=== PATIENT | male | born 1985 | race African-American/Black ===

== ENCOUNTER 2017-09-28 15:12 | Emergency (ER) | payer SELFPAY ==
[2017-09-28] MEDS ORDERED: ONDANSETRON 4 MG TAB.RAPDIS PO ONE (16:23)
[2017-09-28] MEDS ORDERED: KETOROLAC TROMETHAMINE 60 MG/2 ML SDV IM ONE (16:23)
--- NOTE | 2017-09-28 16:25 | ER Document Report ---
ED General - General Chief Complaint: Fever Stated Complaint: FEVER SYMPTOMS Time Seen by Provider: 09/28/17 16:19 Mode of Arrival: Ambulatory Information source: Patient, Relative Notes: 32-year-old male presents with complaints of generalized body aches sore throat nausea vomiting of a few hours duration. Patient notes symptoms started around 4:00 this morning. Significant other notes he was not looking well yesterday but he was denying not feeling well. At 4:00 this morning he noted that he did not feel good has generalized malaise TRAVEL OUTSIDE OF THE [place] IN LAST 30 DAYS: No - HPI Onset: This morning Onset/Duration: Sudden Quality of pain: Achy Severity: Mild Pain Level: 1 Associated symptoms: Body/muscle aches, Nausea Exacerbated by: Denies Relieved by: Denies Similar symptoms previously: No Recently seen / treated by doctor: No - Related Data Allergies/Adverse Reactions: No Known Allergies Allergy (Unverified 09/28/17 15:13) Past Medical History - Social History Smoking Status: Never Smoker Cigarette use (# per day): No Chew tobacco use (# tins/day): No Smoking Education Provided: No Frequency of alcohol use: None Drug Abuse: None Family History: Reviewed & Not Pertinent Patient has suicidal ideation: No Patient has homicidal ideation: No Renal/ Medical History: Denies: Hx Peritoneal Dialysis Review of Systems - Review of Systems Notes: REVIEW OF SYSTEMS: CONSTITUTIONAL : Denies fever, chills, or sweats. Denies recent illness. EENT: Sore throat CARDIOVASCULAR: Denies chest pain. Denies palpitations or racing or irregular heart beat. Denies ankle edema. RESPIRATORY: Denies cough, cold, or chest congestion. Denies shortness of breath, difficulty breathing, or wheezing. GASTROINTESTINAL: Denies abdominal pain or distention. Denies nausea, vomiting , or diarrhea. Denies blood in vomitus, stools, or per rectum. Denies black, tarry stools. Denies constipation. GENITOURINARY: Denies difficulty urinating, painful urination, burning, frequency, blood in urine, or discharge. MUSCULOSKELETAL: Generalized body aches SKIN: Denies rash, lesions or sores. HEMATOLOGIC : Denies easy bruising or bleeding. LYMPHATIC: Denies swollen, enlarged glands. NEUROLOGICAL: Denies confusion or altered mental status. Denies passing out or loss of consciousness. Denies dizziness or lightheadedness. Denies headache. Denies weakness or paralysis or loss of use of either side. Denies problems with gait or speech. Denies sensory loss, numbness, or tingling. Denies seizures. PSYCHIATRIC: Denies anxiety or stress. Denies depression, suicidal ideation, or homicidal ideation. ALL OTHER SYSTEMS REVIEWED AND NEGATIVE. Dictation was performed using [employer] voice recognition software PHYSICAL EXAMINATION: GENERAL: Well-appearing, well-nourished and in no acute distress. Patient does feel ill but does not appear significantly ill HEAD: Atraumatic, normocephalic. EYES: Pupils equal round and reactive to light, extraocular movements intact, sclera anicteric, conjunctiva are normal. ENT: Nares patent, oropharynx clear without exudates. Moist mucous membranes. NECK: Normal range of motion, supple without lymphadenopathy LUNGS: Breath sounds clear to auscultation bilaterally and equal. No wheezes rales or rhonchi. HEART: Regular rate and rhythm without murmurs ABDOMEN: Soft, nontender, nondistended abdomen. No guarding, no rebound. No masses appreciated. Musculoskeletal: Normal range of motion, no pitting or edema. No cyanosis. NEUROLOGICAL: Cranial nerves grossly intact. Normal speech, normal gait. Normal sensory, motor exams PSYCH: Normal mood, normal affect. SKIN: Warm, Dry, normal turgor, no rashes or lesions noted. Physical Exam - Vital signs Vitals: Temp Pulse Resp BP Pulse Ox 99.2 F 98 18 144/81 H 97 09/28/17 15:53 09/28/17 15:53 09/28/17 15:53 09/28/17 15:53 09/28/17 15:53 Course - Re-evaluation Re-evalutation: 09/28/17 17:44 Patient's presentation was consistent with a viral syndrome, lab work was negative, he was given a shot of Toradol and feels much better, he is now responding with no difficulty admits to his achiness is improved. I have given him very strict return precautions. Otherwise he looks well for discharge After performing a Medical Screening Examination, I estimate there is LOW risk for ACUTE CORONARY SYNDROME, PULMONARY EMBOLI, RESPIRATORY FAILURE, SEPSIS OR MENINGITIS, thus I consider the discharge disposition reasonable. I have reevaluated this patient multiple times and no significant life threatening changes are noted. The patient and I have discussed the diagnosis and risks, and we agree with discharging home with close follow-up. We also discussed returning to the Emergency Department immediately if new or worsening symptoms occur. We have discussed the symptoms which are most concerning (e.g., changing or worsening pain, trouble swallowing or breathing, neck stiffness, fever) that necessitate immediate return. - Vital Signs Vital signs: Temp Pulse Resp BP Pulse Ox 100.0 F 96 20 136/74 H 95 09/28/17 17:37 09/28/17 17:37 09/28/17 17:37 09/28/17 17:37 09/28/17 17:37 Discharge - Discharge Clinical Impression: Viral URI Condition: Stable Disposition: HOME, SELF-CARE Instructions: Upper Respiratory Illness ([facility]), Fever ([facility]) Additional Instructions: Follow up with your physician tomorrow for further care or return to the ED IMMEDIATELY if symptoms worsen or new concerns occur. If you cannot afford to follow up with your primary care physician a list of low cost clinics have been provided at the end of your discharge papers as well. Prescriptions: Ketorolac Tromethamine [Toradol 10 mg Tablet] 10 mg PO Q8 #14 tablet Promethazine HCl [Phenergan 25 mg Tablet] 1 - 2 tab PO Q6H PRN #15 tablet PRN Reason:
[2017-09-28 16:58] LABS: A TYPE INFLUENZA AG NEGATIVE (NEGATIVE); B INFLUENZA AG NEGATIVE (NEGATIVE)
[2017-09-28 17:38] VITALS: BP 136/74
== END 2017-09-28 17:38 | disposition home or self-care (01) ==
LOC: ER 15:12
DX: J06.9 Acute upper respiratory infection, unspecified (principal); R50.9 Fever, unspecified; M79.1 Myalgia; R11.0 Nausea
CPT/HCPCS: 99283; 96372; 87070; 87880; 87077; 87804; J1885; S0119

== ENCOUNTER 2017-11-03 19:02 | Emergency (ER) | payer SELFPAY ==
[2017-11-03 19:09] VITALS: BP 152/86
--- NOTE | 2017-11-03 19:30 | ER Document Report ---
ED Skin Rash/Insect Bite/Abscs - General Chief Complaint: Skin Problem Stated Complaint: FOOT PAIN Time Seen by Provider: 11/03/17 19:13 Mode of Arrival: Ambulatory Information source: Patient Notes: Patient is a 32-year-old male with a history of athlete's foot bilaterally who presents to the ER today for the same symptoms again of itching, pain, sloughing off of skin in between his toes. Patient states he has been doing iodine soaks and putting peroxide on them, [id number] Lamisil and athlete' s foot powders which have not been helping. 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 TRAVEL OUTSIDE OF THE [place] IN LAST 30 DAYS: No - Related Data Allergies/Adverse Reactions: No Known Allergies Allergy (Unverified 09/28/17 15:13) Past Medical History - General Information source: Patient - Social History Smoking Status: Never Smoker Family History: Reviewed & Not Pertinent Renal/ Medical History: Denies: Hx Peritoneal Dialysis Review of Systems - Review of Systems Constitutional: No symptoms reported EENT: No symptoms reported Cardiovascular: No symptoms reported Respiratory: No symptoms reported Gastrointestinal: No symptoms reported Genitourinary: No symptoms reported Male Genitourinary: No symptoms reported Musculoskeletal: No symptoms reported Skin: See HPI Hematologic/Lymphatic: No symptoms reported Neurological/Psychological: No symptoms reported Physical Exam - Vital signs Vitals: Temp Pulse Resp BP Pulse Ox 98.5 F 73 16 152/86 H 98 11/03/17 19:08 11/03/17 19:08 11/03/17 19:08 11/03/17 19:08 11/03/17 19:08 - Notes Notes: PHYSICAL EXAMINATION: GENERAL: Well-appearing and in no acute distress. HEAD: Atraumatic, normocephalic. EYES: Pupils equal round and reactive to light, extraocular movements intact, sclera anicteric, conjunctiva are normal. NECK: Normal range of motion, supple without lymphadenopathy LUNGS: CTAB and equal. No wheezes rales or rhonchi. HEART: Regular rate and rhythm without murmurs EXTREMITIES: Normal range of motion, no pitting edema. No cyanosis. NEUROLOGICAL: Cranial nerves grossly intact. Normal sensory/motor exams. PSYCH: Normal mood, normal affect. SKIN: Warm, Dry, normal turgor, moisture and white skin sloughing off between all toes Course - Vital Signs Vital signs: Temp Pulse Resp BP Pulse Ox 98.5 F 73 16 152/86 H 98 11/03/17 19:08 11/03/17 19:08 11/03/17 19:08 11/03/17 19:08 11/03/17 19:08 Discharge - Discharge Clinical Impression: Athletes foot Qualifiers: Laterality: bilateral Qualified Code(s): B35.3 - Tinea pedis Condition: Stable Disposition: HOME, SELF-CARE Additional Instructions: Return immediately for any new or worsening symptoms. Follow up with primary care provider, call tomorrow to make followup appointment. Prescriptions: Cephalexin [Cephalexin 500 MG Capsule] 1 cap PO TID #30 capsule Clotrimazole/Betamethasone Dip [Clotrimazole-Betamethasone Crm] 45 gm TP TID #2 cream.gm. Nystatin [Mycostatin Topical Powder 15 gm] 15 applic TP DAILY #1 bottle Forms: Special Work Note
== END 2017-11-03 19:52 | disposition home or self-care (01) ==
LOC: ER 19:02
DX: B35.3 Tinea pedis (principal); M79.673 Pain in unspecified foot
CPT/HCPCS: 99283

== ENCOUNTER 2017-12-28 17:18 | Emergency (ER) | payer SELFPAY ==
--- NOTE | 2017-12-28 19:59 | ER Document Report ---
ED Extremity Problem, Lower - General Chief Complaint: Foot Pain Stated Complaint: FOOT PAIN Time Seen by Provider: 12/28/17 18:50 Mode of Arrival: Ambulatory Information source: Patient TRAVEL OUTSIDE OF THE [place] IN LAST 30 DAYS: No - HPI Patient complains to provider of: Pain Location: Foot Notes: Patient is here with complaints of feet pain. The patient has a long history of athlete's foot. Been seen in the emergency department for this in the past. He states that he can keep it fairly well controlled when he is able to wear ventilatory shoes. He states that he is in [employer] school, and he is required to wear dress shoes. He wears dress shoes, his athlete's foot seems to get significantly worse. He denies any fevers. He denies any drainage. He denies any nausea, vomiting, diarrhea. No numbness, tingling, weakness. No redness. Pain is worse with touching the area, better with rest. He denies any history of diabetes. He denies any other complaints at this time. - Related Data Allergies/Adverse Reactions: No Known Allergies Allergy (Unverified 09/28/17 15:13) Past Medical History - Social History Smoking Status: Never Smoker Chew tobacco use (# tins/day): No Frequency of alcohol use: None Family History: Reviewed & Not Pertinent Patient has suicidal ideation: No Patient has homicidal ideation: No Renal/ Medical History: Denies: Hx Peritoneal Dialysis Review of Systems - Review of Systems -: Yes All other systems reviewed and negative Physical Exam - Vital signs Vitals: Temp Pulse Resp BP Pulse Ox 98.0 F 66 14 140/68 H 96 12/28/17 17:27 12/28/17 17:27 12/28/17 17:27 12/28/17 17:27 12/28/17 17:27 - Notes Notes: GENERAL: alert, cooperative, nontoxic, no distress. HEAD: normocephalic, atraumatic EYES: conjunctiva pink without discharge, no external redness or swelling. EARS: no external swelling, no external redness NOSE: atraumatic, no external swelling MOUTH/THROAT: mucous membranes moist and pink NECK: soft, supple, full range of motion, no meningismus. CHEST: no distress, lungs clear and equal throughout. No wheezing, rales, rhonchi. CARDIAC: regular rate and rhythm, no murmur, normal capillary refill, normal pulses. BACK: full range of motion, no CVA tenderness. EXTREMITIES: full range of motion of all extremities. No redness, no swelling. NEURO: alert and oriented 3, no focal deficits, full range of motion of all extremities. PYSCH: appropriate mood, affect. Patient is cooperative. SKIN: pink, warm, dry, the patient is noted to have large cracks between all toes of both feet as well as the interphalangeal joint of both feet. There is no surrounding redness. No purulent drainage. Normal pulse and sensation. Normal cap refill. Course - Re-evaluation Re-evalutation: 12/28/17 19:57 Patient is nontoxic appearing with stable vitals. Is here with complaints of athlete's foot. He has a long history of this. Seems to be able to keep it under control until he is to wear shoes that do not have any ventilation while at school. He attempted to wear tennis shoes that were mesh while at school, but states that his teacher will not allow him to wear those. He is required to wear closed toe dress shoes. Patient now has worsening athlete's foot. There is no signs of bacterial infection. Is not running fevers. At this point the patient will be discharged home with medications to help treat his athlete's foot. Seems to be a very chronic problem for the patient, I have recommended that he follow-up with a material worker to help better treat this chronic athlete's foot. I will write him a note for school recommending that he wear mesh use. He is instructed to follow-up with podiatry or his family doctor to next available appointment, sooner for worsening pain, fever, redness , drainage, any further concerns. The patient is noted to have elevated blood pressure during today's emergency department visit. The patient was informed of this finding. The patient was instructed that this may be related to pre-hypertension and requires further evaluation with a primary care provider. The patient has no hypertensive symptoms at this time. The patient's emergency department workup and current diagnosis were explained to the patient and or family. Follow-up instructions were provided. Medications if prescribed were discussed. Instructions for when to return to the emergency department including specific worrisome symptoms were discussed with the patient and/or family. - Vital Signs Vital signs: Temp Pulse Resp BP Pulse Ox 98.0 F 66 14 140/68 H 96 12/28/17 17:27 12/28/17 17:27 12/28/17 17:27 12/28/17 17:27 12/28/17 17:27 Discharge - Discharge Clinical Impression: Tinea pedis Qualifiers: Laterality: bilateral Qualified Code(s): B35.3 - Tinea pedis Condition: Stable Disposition: HOME, SELF-CARE Instructions: Athletes Foot ([facility]) Additional Instructions: Keep feet clean and dry. Use medications as prescribed. Follow-up with podiatry at the next available appointment. Follow-up sooner for increasing pain, fever, redness, drainage, any further concerns. Your blood pressure was elevated during today's visit. Have this rechecked with your doctor. Prescriptions: Clotrimazole/Betamethasone Dip [Lotrisone Cream] 1 applic TP DAILY #1 cream.gm. Nystatin [Mycostatin Topical Powder 15 gm] 1 applic TP BID #1 bottle Forms: Release from PE and Sports, Elevated Blood Pressure, Smoking Cessation Education Referrals: KWASI FIELDS DPM [ACTIVE STAFF] - Follow up as needed LAWSON CARSON DPM [ACTIVE STAFF] - Follow up as needed SAHRA WORRELL DPM [ACTIVE STAFF] - Follow up as needed ARIADNE OLO DPM [ACTIVE STAFF] - Follow up as needed YVETTE VOGEL DPM [NO LOCAL MD] - Follow up as needed YENIFER HELLER DPM [NO LOCAL MD] - Follow up as needed
[2017-12-28 20:19] VITALS: BP 133/86
== END 2017-12-28 20:12 | disposition home or self-care (01) ==
LOC: ER 17:18
DX: B35.3 Tinea pedis (principal); M79.672 Pain in left foot; M79.671 Pain in right foot; R03.0 Elevated blood-pressure reading, without diagnosis of hypertension
CPT/HCPCS: 99283

== ENCOUNTER → 2018-01-15 | Outpatient (CLI) | payer OTHER ==
[2018-01-15 11:10] LABS: ALANINE AMINOTRANSFERASE 30 U/L (21-72); ALBUMIN 4.2 g/dL (3.5-5.0); ALKALINE PHOSPHATASE 67 U/L (38-126); ASPARTATE AMINO TRANSFERASE 20 U/L (17-59); BILIRUBIN,DIRECT 0.3 mg/dL (0.0-0.4); BILIRUBIN,TOTAL 0.4 mg/dL (0.2-1.3)
== END ==
LOC: OD 09:30
DX: B35.3 Tinea pedis (principal)
CPT/HCPCS: 36415; 80076

== ENCOUNTER 2018-03-28 08:41 | Emergency (ER) | payer OTHER ==
[2018-03-28 08:45] VITALS: BP 132/86
--- NOTE | 2018-03-28 09:36 | ER Document Report ---
ED Foreign Body - General Chief Complaint: Swallowed Foreign Body Stated Complaint: TOOTH PAIN Time Seen by Provider: 03/28/18 09:16 Notes: Patient is a 32-year-old healthy male patient complaining of tooth pain and swallowing a gold plated tooth this morning. Patient reports that the tooth with a sheets plate and grill fell out and he swallowed it. He feels pain in his chest and his front teeth ache. Denies any trouble swallowing or breathing. TRAVEL OUTSIDE OF THE [place] IN LAST 30 DAYS: No - HPI Onset: This morning Onset/Duration: Sudden Quality of pain: Achy - Related Data Allergies/Adverse Reactions: No Known Allergies Allergy (Verified 03/28/18 08:41) Past Medical History - General Information source: Patient - Social History Smoking Status: Never Smoker Frequency of alcohol use: None Drug Abuse: Marijuana Family History: Reviewed & Not Pertinent Patient has suicidal ideation: No Patient has homicidal ideation: No Renal/ Medical History: Denies: Hx Peritoneal Dialysis Review of Systems - Review of Systems Constitutional: No symptoms reported EENT: No symptoms reported Cardiovascular: No symptoms reported Respiratory: No symptoms reported Gastrointestinal: No symptoms reported Genitourinary: No symptoms reported Male Genitourinary: No symptoms reported Musculoskeletal: No symptoms reported Skin: No symptoms reported Hematologic/Lymphatic: No symptoms reported Neurological/Psychological: No symptoms reported Physical Exam - Vital signs Vitals: Temp Pulse Resp BP Pulse Ox 98.1 F 64 17 132/86 H 97 03/28/18 08:44 03/28/18 08:44 03/28/18 08:44 03/28/18 08:44 03/28/18 08:44 Interpretation: Normal - General General appearance: Appears well, Alert - HEENT Head: Normocephalic, Atraumatic Eyes: Normal Pupils: PERRL Mucous membranes: Normal Teeth diagram: 1 - Missing teeth. No gingival swelling. No abscess appreciated Pharynx: Normal Neck: Normal - Respiratory Respiratory status: No respiratory distress Chest status: Nontender Breath sounds: Normal Chest palpation: Normal - Cardiovascular Rhythm: Regular Heart sounds: Normal auscultation Murmur: No - Abdominal Inspection: Normal Distension: No distension Bowel sounds: Normal Tenderness: Nontender Organomegaly: No organomegaly - Back Back: Normal, Nontender - Extremities General upper extremity: Normal inspection, Nontender, Normal color, Normal ROM , Normal temperature General lower extremity: Normal inspection, Nontender, Normal color, Normal ROM , Normal temperature, Normal weight bearing. No: Mario's sign - Neurological Neuro grossly intact: Yes Cognition: Normal Orientation: AAOx4 [place] Coma Scale Eye Opening: Spontaneous [place] Coma Scale Verbal: Oriented [place] Coma Scale Motor: Obeys Commands [place] Coma Scale Total: 15 Speech: Normal Motor strength normal: LUE, RUE, LLE, RLE Sensory: Normal - Psychological Associated symptoms: Normal affect, Normal mood - Skin Skin Temperature: Warm Skin Moisture: Dry Skin Color: Normal Course - Re-evaluation Re-evalutation: 03/28/18 09:50 Foreign body visualized in the mid descending colon. These results were discussed with the patient. Patient should be able to pass foreign body most likely the tooth without any difficulty. Patient is having no abdominal pain. Patient stable for discharge - Vital Signs Vital signs: Temp Pulse Resp BP Pulse Ox 98.1 F 64 17 132/86 H 97 03/28/18 08:44 03/28/18 08:44 03/28/18 08:44 03/28/18 08:44 03/28/18 08:44 Discharge - Discharge Clinical Impression: Pain, dental Swallowed foreign body Qualifiers: Encounter type: initial encounter Qualified Code(s): T18.9XXA - Foreign body of alimentary tract, part unspecified, initial encounter Condition: Stable Disposition: HOME, SELF-CARE Instructions: Toothache ([facility]), Swallowed Foreign Body ([facility]) Additional Instructions: Your tooth was visualized in your mid descending colon He should be able to pass this with normal bowel movements without any difficulty Encourage water intake and dietary fiber intake For your dental pain, I recommend Anbesol to the gum and temporary filling to help with nerve pain Ibuprofen as prescribed Follow-up with dental as soon as possible for further evaluation and treatment Prescriptions: Ibuprofen [Motrin 800 Mg Tablet] 800 mg PO Q6H #20 tablet Forms: Return to Work [facility] [NO LOCAL MD] - Follow up as needed
--- NOTE | 2018-03-28 09:45 | RADIOLOGY REPORT (SQ) ---
EXAM DESCRIPTION: ACUTE ABDOMEN SERIES COMPLETED DATE/TIME: 03/28/2018 9:36 am REASON FOR STUDY: swallowed gold tooth COMPARISON: None. NUMBER OF VIEWS: Three views. TECHNIQUE: Frontal chest, supine abdomen and upright abdomen radiographic images acquired. LIMITATIONS: None. FINDINGS: CHEST: Lungs clear of infiltrates. No radiopaque foreign body. Cardiac silhouette size, marlyn unremarkable. FREE AIR: None. No abnormal gas collections. BOWEL GAS PATTERN: Nonobstructive pattern. No dilated loops or air fluid levels. CALCIFICATIONS: No suspicious calcifications. HARDWARE: None in the abdomen. SOFT TISSUES: No gross mass or suggestion of organomegaly. BONES: No acute fracture. No worrisome bone lesions. OTHER: In the mid descending colon, a radiopaque foreign body is present, likely the swallowed gold t ooth. IMPRESSION: Mid descending colon radiopaque foreign body, likely the swallowed gold tooth TECHNICAL DOCUMENTATION: JOB ID: [id number] [employer]- All Rights Reserved Reading location - IP/workstation name: [email or web address], [facility]
== END 2018-03-28 10:00 | disposition home or self-care (01) ==
LOC: ER 08:41
DX: T18.9XXA Foreign body of alimentary tract, part unspecified, initial encounter (principal); K08.9 Disorder of teeth and supporting structures, unspecified; X58.XXXA Exposure to other specified factors, initial encounter
CPT/HCPCS: 74022; 99283

== ENCOUNTER 2018-07-24 18:02 | Emergency (ER) | payer OTHER ==
[2018-07-24] MEDS ORDERED: ACETAMINOPHEN 325 MG TABLET PO ONE (18:23)
[2018-07-24] MEDS ORDERED: KETOROLAC TROMETHAMINE 60 MG/2 ML SDV IM ONE (19:59)
[2018-07-24] MEDS ORDERED: DEXAMETHASONE SOD PHOS INJ 10 MG/1 ML VIAL IM ONE (19:59)
--- NOTE | 2018-07-24 20:00 | ER Document Report ---
ED Flu Like - General Chief Complaint: Flu Symptoms Stated Complaint: FEVER Time Seen by Provider: 07/24/18 19:22 Mode of Arrival: Ambulatory Information source: Patient Notes: 33-year-old male presented to ED for flulike symptoms body aches allover fever chills sore throat since earlier today. He denies any nausea or vomiting or chest discomfort. Patient is alert and oriented respirations regular and unlabored speaking in full sentences walks with a even steady gait. TRAVEL OUTSIDE OF THE [place] IN LAST 30 DAYS: No - HPI Onset: This morning Timing/Duration: Worse Quality of pain: Achy Severity: Moderate Pain Level: 3 Associated symptoms: Body/muscle aches, Chills, Nonproductive cough, Fever, Rhinnorhea, Sinus pain/drainage, Sore throat Similar symptoms previously: Yes Recently seen / treated by doctor: No - Related Data Allergies/Adverse Reactions: No Known Allergies Allergy (Verified 07/24/18 18:41) Past Medical History - General Information source: Patient - Social History Smoking Status: Never Smoker Frequency of alcohol use: None Drug Abuse: Marijuana Occupation: Student Lives with: Spouse/Significant other Family History: Reviewed & Not Pertinent Patient has suicidal ideation: No Patient has homicidal ideation: No - Past Medical History Cardiac Medical History: Reports: None Pulmonary Medical History: Reports: None EENT Medical History: Reports: None Neurological Medical History: Reports: None Endocrine Medical History: Reports: None Renal/ Medical History: Reports: None Malignancy Medical History: Reports None GI Medical History: Reports: None Musculoskeletal Medical History: Reports Hx Musculoskeletal Trauma Skin Medical History: Reports None Psychiatric Medical History: Reports: Hx Anxiety, Hx Depression, Hx Post Traumatic Stress Disorder, Hx Schizophrenia - Paranoid Traumatic Medical History: Reports: Hx Fractures - Pelvis Infectious Medical History: Reports: None Surgical Hx: Negative Past Surgical History: Reports: None - Immunizations Immunizations up to date: Yes Hx Diphtheria, Pertussis, Tetanus Vaccination: Yes Review of Systems - Review of Systems Notes: REVIEW OF SYSTEMS: CONSTITUTIONAL : fever, chills, and recent illness. EENT: Patient complains of nasal and sinus congestion and discharge with sore throat and enlarged tonsils. Denies eye, ear, or mouth pain or symptoms. Denies throat, tongue, or mouth swelling or difficulty swallowing. CARDIOVASCULAR: Denies chest pain. Denies palpitations or racing or irregular heart beat. Denies ankle edema. RESPIRATORY: Planes of cough, cold, and chest congestion. Denies shortness of breath, difficulty breathing, or wheezing. GASTROINTESTINAL: Denies abdominal pain or distention. Denies nausea, vomiting , or diarrhea. Denies blood in vomitus, stools, or per rectum. Denies black, tarry stools. Denies constipation. GENITOURINARY: Denies difficulty urinating, painful urination, burning, frequency, blood in urine, or discharge. MUSCULOSKELETAL: Denies back or neck pain or stiffness. Denies joint pain or swelling. SKIN: Denies rash, lesions or sores. HEMATOLOGIC : Denies easy bruising or bleeding. LYMPHATIC: Denies swollen, enlarged glands. NEUROLOGICAL: Denies confusion or altered mental status. Denies passing out or loss of consciousness. Denies dizziness or lightheadedness. Denies headache. Denies weakness or paralysis or loss of use of either side. Denies problems with gait or speech. Denies sensory loss, numbness, or tingling. Denies seizures. PSYCHIATRIC: Denies anxiety or stress. Denies depression, suicidal ideation, or homicidal ideation. ALL OTHER SYSTEMS REVIEWED AND NEGATIVE. Dictation was performed using [employer] voice recognition software PHYSICAL EXAMINATION: GENERAL: Well-appearing, well-nourished and in no acute distress. HEAD: Atraumatic, normocephalic. EYES: Pupils equal round and reactive to light, extraocular movements intact, sclera anicteric, conjunctiva are normal. ENT: Nasal mucosa pale boggy with clear drainage tonsils erythematous and enlarged with exudates. Moist mucous membranes. NECK: Normal range of motion, supple without lymphadenopathy LUNGS: Breath sounds clear to auscultation bilaterally and equal. No wheezes rales or rhonchi. HEART: Regular rate and rhythm without murmurs ABDOMEN: Soft, nontender, nondistended abdomen. No guarding, no rebound. No masses appreciated. Musculoskeletal: Normal range of motion, no pitting or edema. No cyanosis. NEUROLOGICAL: Cranial nerves grossly intact. Normal speech, normal gait. Normal sensory, motor exams PSYCH: Normal mood, normal affect. SKIN: Warm, Dry, normal turgor, no rashes or lesions noted. Physical Exam - Vital signs Vitals: Temp Pulse Resp BP Pulse Ox 103.1 F H 80 19 156/90 H 96 07/24/18 18:21 07/24/18 18:21 07/24/18 18:21 07/24/18 18:21 07/24/18 18:21 Course - Re-evaluation Re-evalutation: 07/25/18 00:23 Patient treated with Toradol, Decadron, and penicillin G IM for his strep throat body aches and viral symptoms. Patient alert and oriented able to swallow fluids before discharge. Patient discharged home with his family. - Vital Signs Vital signs: Temp Pulse Resp BP Pulse Ox 99.1 F 65 16 141/75 H 99 07/24/18 21:35 07/24/18 21:35 07/24/18 21:35 07/24/18 21:35 07/24/18 21:35 Discharge - Discharge Clinical Impression: Strep sore throat Condition: Stable Disposition: HOME, SELF-CARE Instructions: Family Physicians / Practices Additional Instructions: STREP THROAT: Your sore throat is due to the streptococcus germ (strep throat). Strep throat usually makes you feel quite ill with fever and aches, headache, swollen sore throat, and tender bumps under the angles of the jaw. Strep throat requires antibiotic treatment. Although the sore throat may go away by itself, complications such as rheumatic fever, kidney disease, or throat abscess can occur. We usually prescribe antibiotics by mouth. Be sure to take the medicine until it's gone. If you stop early, the strep may come back. If you are vomiting, are severely ill, or can't remember to take pills, we can give you an antibiotic shot. Take acetaminophen or ibuprofen for pain and fever. Sip frequent clear liquids, or use popsicles or ice chips. Anesthetic sprays or lozenges may help. Make sure the air in the room is not too dry. Avoid using decongestants or antihistamines. Call the doctor if there is no improvement in three days, or if you have difficulty breathing, increasing throat pain, high fever, rash, or frequent vomiting. Toradol Injection You have been given an injection of ketorolac tromethamine (Toradol). This is an excellent, safe drug for pain control. It also has potent antiinflammatory action. You should have significant pain relief within about one hour. Toradol is not addicting and is non-sedating. It does not interfere with driving or work. Call or return if you develop itching, hives, shortness of breath, or rash. Penicillins The antibiotic you have received is a member of the penicillin family. This is a very useful class of antibiotics. The particular type of antibiotic chosen for you was determined by the nature of your problem. Penicillins are absorbed best when taken on an empty stomach, and should be taken either a half hour before or two hours after a meal. Some newer medicines of the penicillin class are better taken with food -- if this is the case, the pharmacist will label the medicine to alert you. Penicillins usually have no side effects. However, allergy to penicillins is common. If you have had an allergic reaction to any drug of the penicillin family, you should never take any other penicillin. Notify your doctor at once if you develop hives, itching, swelling, faintness, or shortness of breath. Less serious side effects can include nausea or diarrhea. STEROID MEDICATION: You have been given an injection of medicine of the cortisone/steroid class. This medication is used to control inflammation or allergy. It is often continued as a pill for a short period of time, until the acute process subsides. There are usually no side effects from short-term use of cortisone-like medications. Some persons feel an increased sense of well-being and are not sleepy at bedtime. Long-term use of cortisone medications is best avoided, unless required for a severe condition. If your condition does not remit, or relapses after the course of corticosteroid medication, you should consult your physician. FOLLOW-UP CARE: If you have been referred to a physician for follow-up care, call the physician s office for an appointment as you were instructed or within the next two days. If you experience worsening or a significant change in your symptoms, notify the physician immediately or return to the Emergency Department at any time for re-evaluation. Forms: Elevated Blood Pressure, Return to School
[2018-07-24] MEDS ORDERED: PENICILLIN G BENZATHINE 1.2 MILLION UNIT/2 ML DISP.SYRIN IM ONE (20:24)
[2018-07-24 20:53] LABS: A TYPE INFLUENZA AG NEGATIVE (NEGATIVE); B INFLUENZA AG NEGATIVE (NEGATIVE)
[2018-07-24 21:18] LABS: APPEARANCE,URINE SLIGHTLY-CLOUDY; BILIRUBIN,URINE NEGATIVE (NEGATIVE); COLOR,URINE YELLOW; GLUCOSE, URINE NEGATIVE (NEGATIVE); KETONES,URINE NEGATIVE (NEGATIVE); LEUKOCYTE ESTERASE,URINE NEGATIVE (NEGATIVE); NITRITE,URINE NEGATIVE (NEGATIVE); PROTEIN,URINE NEGATIVE (NEGATIVE); URINE SPECIFIC GRAVITY 1.026; UROBILINOGEN,URINE NEGATIVE mg/dL (<2.0)
[2018-07-24 21:37] VITALS: BP 141/75
== END 2018-07-24 21:37 | disposition home or self-care (01) ==
LOC: ER 18:02
DX: J02.0 Streptococcal pharyngitis (principal); R50.9 Fever, unspecified; M79.10 Myalgia, unspecified site; J34.89 Other specified disorders of nose and nasal sinuses; R05 Cough; R09.81 Nasal congestion; R09.89 Other specified symptoms and signs involving the circulatory and respiratory systems
CPT/HCPCS: 99283; 96372; 87086; 87880; 81001; 87804; J1885; J0561; J1100

== ENCOUNTER 2018-09-21 14:05 | Emergency (ER) | payer OTHER ==
[2018-09-21] MEDS ORDERED: PREDNISONE 20 MG TABLET PO ONE (16:40)
[2018-09-21] MEDS ORDERED: LIDOCAINE 5% (700 MG) TRANSDERMAL ADH..PATCH TP ONE (16:40)
--- NOTE | 2018-09-21 16:45 | ER Document Report ---
HPI - HPI Patient complains to provider of: Left shoulder and upper arm pain Time Seen by Provider: 09/21/18 16:27 Onset: Other - 4 years Onset/Duration: Persistent Quality of pain: Achy Pain Level: 3 Context: Patient presents complaining of left shoulder and upper arm pain for the past 4 years. Patient states that he previously had been to lips and swelling down ja rring his left shoulder. Patient complains of persistent pain since then. Patient denies any new injury. Patient states he is currently in school and that he cannot be limited with his chronic shoulder pain. Patient has not followed up with an orthopedic about this injury in the past. Associated Symptoms: Other - Left shoulder and upper arm pain. denies: Chest pain, Fever Exacerbated by: Movement Relieved by: Denies Similar symptoms previously: Yes Recently seen / treated by doctor: No - ROS ROS below otherwise negative: Yes Systems Reviewed and Negative: Yes All other systems reviewed and negative - CONSTITUTIONAL Constitutional: DENIES: Fever, Chills - NEURO Neurology: DENIES: Headache, Weakness - CARDIOVASCULAR Cardiovascular: DENIES: Chest pain - RESPIRATORY Respiratory: DENIES: Trouble Breathing, Coughing - GASTROINTESTINAL Gastrointestinal: DENIES: Nausea - MUSCULOSKELETAL Musculoskeletal: REPORTS: Extremity pain, Back Pain - DERM Skin Color: Normal Skin Problems: None Past Medical History - General Information source: Patient - Social History Smoking Status: Never Smoker Frequency of alcohol use: None Drug Abuse: None Occupation: [employer] Family History: Reviewed & Not Pertinent Renal/ Medical History: Denies: Hx Peritoneal Dialysis Musculoskeletal Medical History: Reports Hx Musculoskeletal Trauma Psychiatric Medical History: Reports: Hx Anxiety, Hx Depression, Hx Post Traumatic Stress Disorder, Hx Schizophrenia - Paranoid Traumatic Medical History: Reports: Hx Fractures - Pelvis Past Surgical History: Reports: Hx Oral Surgery - Immunizations Immunizations up to date: Yes Hx Diphtheria, Pertussis, Tetanus Vaccination: Yes Vertical Provider Document - CONSTITUTIONAL Agree With Documented VS: Yes Exam Limitations: No Limitations General Appearance: WD/WN, No Apparent Distress - INFECTION CONTROL TRAVEL OUTSIDE OF THE [place] IN LAST 30 DAYS: No - HEENT HEENT: Atraumatic, Normocephalic - NECK Neck: Normal Inspection. negative: Lymphadenopathy-Left, Lymphadenopathy-Right - RESPIRATORY Respiratory: Breath Sounds Normal, No Respiratory Distress - CARDIOVASCULAR Cardiovascular: Regular Rate, Regular Rhythm, No Murmur - GI/ABDOMEN Gastrointestinal: Abdomen Soft - BACK Back: Abnormal Inspection - Shunt with lower cervical and upper thoracic tenderness and left paraspinal muscle tenderness - MUSCULOSKELETAL/EXTREMETIES Musculoskeletal/Extremeties: ADRIANA, FROM Notes: Patient with normal strength and muscle tone to bilateral upper extremities. - NEURO Level of Consciousness: Awake, Alert, Appropriate Motor/Sensory: No Motor Deficit, No Sensory Deficit - DERM Integumentary: Warm, Dry, No Rash Course - Re-evaluation Re-evalutation: 09/21/18 16:42 Patient presents with pain in a C 6 through T1 nerve distribution pattern, without any fever or chronic illness. No history of IV drug use. Patient reports history of chronic pain that has been daily for the past 4 years. Patient denies any change in the presentation of symptoms but just wanted to see about having this evaluated because he is making career choices that he cannot be limited by chronic pain. - Vital Signs Vital signs: Temp Pulse Resp BP Pulse Ox 98.3 F 59 L 16 149/96 H 100 09/21/18 14:10 09/21/18 14:10 09/21/18 14:10 09/21/18 14:10 09/21/18 14:10 Discharge - Discharge Clinical Impression: Cervical radicular pain Condition: Stable Disposition: HOME, SELF-CARE Instructions: Radiculopathy ([facility]), Steroid Medication Additional Instructions: Return immediately for any new or worsening symptoms Followup with your primary care provider, call tomorrow to make a followup appointment You can take the pain medication that you were previously prescribed as directed Follow-up with orthopedics for further evaluation, call Monday for an appointment Prescriptions: Cyclobenzaprine HCl [Flexeril 10 Mg Tablet] 10 mg PO TID #15 tablet Prednisone [Deltasone 20 mg Tablet] 3 tab PO DAILY 4 Days tablet Forms: Return to School Referrals: [facility] [Provider Group] - 09/24/18
[2018-09-21 16:53] VITALS: BP 141/101
== END 2018-09-21 17:06 | disposition home or self-care (01) ==
LOC: ER 14:05
DX: M54.2 Cervicalgia (principal); M25.512 Pain in left shoulder; M79.602 Pain in left arm
CPT/HCPCS: 99283; J7512

== ENCOUNTER 2019-01-12 13:29 | Emergency (ER) | payer OTHER ==
[2019-01-12 13:44] VITALS: BP 145/82
[2019-01-12] MEDS ORDERED: IBUPROFEN 800 MG TABLET PO ONE (14:07)
[2019-01-12] MEDS ORDERED: PREDNISONE 10 MG TABLET PO ONE (14:07)
--- NOTE | 2019-01-12 14:13 | ER Document Report ---
ED General - General Chief Complaint: Hand Pain Stated Complaint: LEFT HAND AND ARM PAIN Time Seen by Provider: 01/12/19 13:52 Mode of Arrival: Ambulatory Information source: Patient TRAVEL OUTSIDE OF THE [place] IN LAST 30 DAYS: No - HPI Patient complains to provider of: Left hand swelling and pain Onset: This morning Onset/Duration: Sudden Quality of pain: Sharp Severity: Severe Pain Level: 5 Associated symptoms: denies: Chills, Fever Exacerbated by: Movement Relieved by: Denies Similar symptoms previously: No Recently seen / treated by doctor: No Notes: 33-year-old -Northern [place] male coming in today with the atraumatic painful swelling of his left hand. No other swelling anywhere else. No generalized rash. No shortness of breath or oropharyngeal swelling. Complains of the pain shoots from his hand up to his arm. No chest pain. - Related Data Allergies/Adverse Reactions: No Known Allergies Allergy (Verified 01/12/19 13:30) Past Medical History - General Information source: Patient - Social History Smoking Status: Never Smoker Family History: Reviewed & Not Pertinent Renal/ Medical History: Denies: Hx Peritoneal Dialysis Musculoskeletal Medical History: Reports Hx Musculoskeletal Trauma Psychiatric Medical History: Reports: Hx Anxiety, Hx Depression, Hx Post Traumatic Stress Disorder, Hx Schizophrenia - Paranoid Traumatic Medical History: Reports: Hx Fractures - Pelvis Past Surgical History: Reports: Hx Oral Surgery - Immunizations Immunizations up to date: Yes Hx Diphtheria, Pertussis, Tetanus Vaccination: Yes Review of Systems - Review of Systems Notes: Constitutional: No fevers. No chills. EENT: No eye redness. No eye pain. No ear pain. No sore throat. Cardiovascular: No chest pain. No palpitations. Respiratory: No cough. No shortness of breath. No respiratory distress. Gastrointestinal: No abdominal pain. No nausea, vomiting, or diarrhea. Genitourinary: Atraumatic. No lesions. No pain. No discharge. Musculoskeletal: Positive left hand pain and swelling Skin: No rash or lesions. Lymphatic: No swollen lymph nodes. Neurologic: No headache. No syncope. Psychiatric: No suicidal or homicidal ideation. Physical Exam - Vital signs Vitals: Temp Pulse Resp BP Pulse Ox 98.4 F 73 18 145/82 H 98 01/12/19 13:43 01/12/19 13:43 01/12/19 13:43 01/12/19 13:43 01/12/19 13:43 - Notes Notes: General: Well-developed, well-nourished. In no acute distress. Non-toxic appearing. Cardiac: Well-perfused. Regular rate and rhythm. No murmurs, rubs, or gallops. Pulmonary: No respiratory distress. No cyanosis. Bilateral lung fiels are clear to auscultation. Abdominal: Non-distended. Non-rigid. Bowels sounds are present in all four quadrants. No guarding or rebound. HEENT: Head is atraumatic. Conjunctivae not reddened. No tearing. PERRL. EOMI. Orbits atraumatic. No periorbital swelling or erythema. Oropharynx is without erythema, swelling, or exudates. Neck: Supple. No adenopathy. No meningismus. Dermatologic: Warm with good turgor. No rash. Atraumatic. Chest: Atraumatic. No chest wall tenderness to palpation. Musculoskeletal: Left hand is noticeably edematous. There is no erythema. There is tenderness across the metacarpophalangeal joints 1 through 5. Range of motion intact. Distal neurovascular exam is intact Genitourinary: Examination deferred Neurologic: No gross neurologic deficits. Psychiatric: Normal mood. Course - Re-evaluation Re-evalutation: 01/12/19 14:13 We will get a x-ray of the hand to rule out any sort of bony abnormality or arthritis. Get venous Doppler to check the upper extremity for any signs of DVT. Symptoms are suggestive of an arthropathic process. 01/12/19 15:54 Left upper extremity venous Doppler negative per technologist. X-ray of the hand does not reveal any acute bony abnormality. We will treat this is a generalized arthritic hand with steroids and Ultram - Vital Signs Vital signs: Temp Pulse Resp BP Pulse Ox 98.4 F 73 18 145/82 H 98 01/12/19 13:43 01/12/19 13:43 01/12/19 13:43 01/12/19 13:43 01/12/19 13:43 Discharge - Discharge Clinical Impression: Arthritis of hand Condition: Good Disposition: HOME, SELF-CARE Instructions: Arthritis ([facility]) Prescriptions: Tramadol HCl/Acetaminophen [Ultracet 37.5 mg/325 mg Tablet] 1 each PO Q6HP PRN #12 tablet PRN Reason: Methylprednisolone [Medrol Dosepack (4 mg/Tab) 21 Tab/Dosepak] 4 mg PO ASDIR PRN #21 tab.ds.pk PRN Reason: Referrals: [facility] [Provider Group] - Follow up as needed
--- NOTE | 2019-01-12 14:33 | RADIOLOGY REPORT (SQ) ---
EXAM DESCRIPTION: HAND LEFT 3 VIEWS COMPLETED DATE/TIME: 01/12/2019 2:19 pm REASON FOR STUDY: swelling/joint marquez COMPARISON: None. EXAM PARAMETERS: NUMBER OF VIEWS: Three views. TECHNIQUE: AP, lateral and oblique radiographic images acquired of the left hand. LIMITATIONS: None. FINDINGS: MINERALIZATION: Normal. BONES: No acute fracture or dislocation. No worrisome bone lesions. JOINTS: No effusion. SOFT TISSUES: Mild dorsal soft tissue swelling. No radiopaque foreign body. OTHER: No other significant finding. IMPRESSION: NO FRACTURE. TECHNICAL DOCUMENTATION: JOB ID: [id number] [email or web address]- All Rights Reserved Reading location - IP/workstation name: [email or web address]
--- NOTE | 2019-01-12 15:55 | RADIOLOGY REPORT (SQ) ---
EXAM DESCRIPTION: VENOUS UNILATERAL UPPER COMPLETED DATE/TIME: 01/12/2019 3:43 pm REASON FOR STUDY: swelling without trauma COMPARISON: None. TECHNIQUE: Dynamic and static dugan scale and color images acquired of the left arm venous system. Se lected spectral images acquired with additional compression and augmentation maneuvers. The contralat eral subclavian vein and internal jugular vein were also imaged. Images stored on PACS. LIMITATIONS: None. FINDINGS: INTERNAL JUGULAR VEIN: Normal phasicity, compression, augmentation. No visualized echogeni c material on dugan scale. No defects on color images. Comparison opposite side normal. SUBCLAVIAN VEIN: Normal compression, augmentation. No visualized echogenic material on dugan scale. No defects on color images. AXILLARY VEIN: Normal compression, augmentation. No visualized echogenic material on dugan scale. No d efects on color images. BRACHIAL VEIN: Normal compression, augmentation. No visualized echogenic material on dugan scale. No d efects on color images. BASILIC VEIN: Normal compression, augmentation. No visualized echogenic material on dugan scale. No de fects on color images. CEPHALIC VEIN: Normal compression, augmentation. No visualized echogenic material on dugan scale. No d efects on color images. OTHER: No other significant finding. CONTRALATERAL SUBCLAVIAN VEIN AND INTERNAL JUGULAR VEIN: Normal phasicity, compression and augmentation. No visualized echogenic material on dugan scale. No de fects on color images. IMPRESSION: NO EVIDENCE DVT OR SVT IN THE LEFT ARM. TECHNICAL DOCUMENTATION: JOB ID: [id number] [employer]- All Rights Reserved Reading location - IP/workstation name: [email or web address]
== END 2019-01-12 16:36 | disposition home or self-care (01) ==
LOC: ER 13:29
DX: M19.049 Primary osteoarthritis, unspecified hand (principal); M79.642 Pain in left hand; R60.0 Localized edema
CPT/HCPCS: 99284; 93971; 73130; J7512

== ENCOUNTER 2019-09-27 10:02 | Emergency (ER) | payer BC, OTHER ==
[2019-09-27] MEDS ORDERED: ONDANSETRON HCL INJ/PF 4 MG/2 ML SDV IV ONE (10:18)
[2019-09-27] MEDS ORDERED: IBUPROFEN 800 MG TABLET PO ONE (10:18)
--- NOTE | 2019-09-27 10:19 | ER Document Report ---
ED Medical Screen (RME) - General Chief Complaint: Chest Pain Stated Complaint: WEAKNESS/CHEST PAIN/BACK PAIN Time Seen by Provider: 09/27/19 10:15 TRAVEL OUTSIDE OF THE [place] IN LAST 30 DAYS: No - HPI Notes: 09/27/19 10:18 Patient is a 34-year-old male who presents complaining of dry cough, fever, body ache, nausea/vomiting for the past 2 days. No other significant past medical history. Denies drug allergies. I have treated and performed a rapid initial assessment of this patient. A comprehensive ED assessment and evaluation of the patient, analysis of test results and completion of medical decision making process will be conducted by additional ED providers. PHYSICAL EXAMINATION: GENERAL: Well-appearing, well-nourished and in no acute distress. A&Ox4. Answers questions appropriately. Lungs: CTAB - Related Data Allergies/Adverse Reactions: No Known Allergies Allergy (Verified 01/12/19 13:30) Past Medical History Renal/ Medical History: Denies: Hx Peritoneal Dialysis Musculoskeltal Medical History: Reports Hx Musculoskeletal Trauma Psychiatric Medical History: Reports: Hx Anxiety, Hx Depression, Hx Post Traumatic Stress Disorder, Hx Schizophrenia - Paranoid Traumatic Medical History: Reports: Hx Fractures - Pelvis Past Surgical History: Reports: Hx Oral Surgery - Immunizations Immunizations up to date: Yes Hx Diphtheria, Pertussis, Tetanus Vaccination: Yes Physical Exam - Vital signs Vitals: Temp Pulse BP Pulse Ox 101.0 F H 77 147/97 H 98 09/27/19 10:14 09/27/19 10:14 09/27/19 10:14 09/27/19 10:14 Course - Vital Signs Vital signs: Temp Pulse Resp BP Pulse Ox 101.0 F H 77 147/97 H 98 09/27/19 10:14 09/27/19 10:14 09/27/19 10:14 09/27/19 10:14
[2019-09-27 11:08] LABS: HEMATOCRIT 43.6 % (37.9-51.0); HEMOGLOBIN 14.9 g/dL (13.5-17.0); MEAN CORPUSCULAR HEMOGLOBIN 30.9 pg (27.0-33.4); MEAN CORPUSCULAR HGB CONC 34.1 g/dL (32.0-36.0); MEAN CORPUSCULAR VOLUME 91 fl (80-97); PLATELET COUNT 142 10^3/uL (150-450); RED BLOOD COUNT 4.82 10^6/uL (4.35-5.55); WHITE BLOOD COUNT 3.4 10^3/uL (4.0-10.5)
[2019-09-27 11:23] LABS: A TYPE INFLUENZA AG NEGATIVE (NEGATIVE); B INFLUENZA AG NEGATIVE (NEGATIVE)
[2019-09-27] MEDS: NORMAL SALINE 1000 ML 1,000 ML IV PRN ×2 (11:25→12:25)
--- NOTE | 2019-09-27 11:26 | RADIOLOGY REPORT (SQ) ---
EXAM DESCRIPTION: CHEST 2 VIEWS COMPLETED DATE/TIME: 09/27/2019 11:12 am REASON FOR STUDY: fever/cough COMPARISON: PA view of the chest from 03/28/2018. EXAM PARAMETERS: NUMBER OF VIEWS: two views TECHNIQUE: PA and lateral views of the chest were obtained. RADIATION DOSE: NA LIMITATIONS: none FINDINGS: LUNGS AND PLEURA: Stable calcified granuloma in the right middle lobe. There is no consol idation, pleural effusion or pneumothorax. MEDIASTINUM AND HILAR STRUCTURES: No mediastinal or hilar contour abnormality. HEART AND VASCULAR STRUCTURES: The cardiac silhouette and pulmonary vasculature are within normal ascencio its. BONES: No acute findings. HARDWARE: None in the chest. OTHER: No other finding. IMPRESSION: No acute cardiopulmonary process. TECHNICAL DOCUMENTATION: JOB ID: [id number] [email or web address]- All Rights Reserved Reading location - IP/workstation name: [email or web address]
[2019-09-27 11:34] LABS: ALBUMIN 4.3 g/dL (3.5-5.0); ALKALINE PHOSPHATASE 59 U/L (38-126); ANION GAP 9 (5-19); ASPARTATE AMINO TRANSFERASE 33 U/L (17-59); BILIRUBIN,DIRECT 0.2 mg/dL (0.0-0.4); BILIRUBIN,TOTAL 0.7 mg/dL (0.2-1.3); BLOOD UREA NITROGEN 8 mg/dL (7-20); CALCIUM 9.4 mg/dL (8.4-10.2); CARBON DIOXIDE 33 mmol/L (22-30); CHLORIDE 98 mmol/L (98-107); GLUCOSE 95 mg/dL (75-110); POTASSIUM 4.6 mmol/L (3.6-5.0); TOTAL PROTEIN 8.3 g/dL (6.3-8.2)
[2019-09-27 11:55] LABS: ABSOLUTE LYMPHOCYTES# (MANUAL) 0.7 10^3/uL (0.5-4.7); ABSOLUTE MONOCYTES # (MANUAL) 0.6 10^3/uL (0.1-1.4); BAND NEUTROPHILS % (MANUAL) 4 % (3-5); BASOPHILS % (MANUAL) 0 % (0-2); EOSINOPHILS % (MANUAL) 0 % (0-6); LYMPHOCYTES % (MANUAL) 22 % (13-45); MONOCYTES % (MANUAL) 17 % (3-13); SEGMENTED NEUTROPHILS % (MAN) 57 % (42-78); TOTAL CELLS COUNTED 100
[2019-09-27 11:56] LABS: PLATELET CLUMPS PRESENT; PLATELET COMMENT DECREASED; RBC MORPHOLOGY COMMENT NORMO-CYTIC/CHROMIC
[2019-09-27 12:38] LABS: APPEARANCE,URINE CLEAR; BILIRUBIN,URINE NEGATIVE (NEGATIVE); COLOR,URINE YELLOW; GLUCOSE, URINE NEGATIVE (NEGATIVE); KETONES,URINE NEGATIVE (NEGATIVE); PROTEIN,URINE NEGATIVE (NEGATIVE); URINE SPECIFIC GRAVITY 1.011; UROBILINOGEN,URINE NEGATIVE mg/dL (<2.0)
--- NOTE | 2019-09-27 14:44 | ER Document Report ---
Entered by URVASHI URBINA SCRIBE 09/27/19 1251 Acting as scribe for:ROCKY JEAN IV, MD ED General - General Chief Complaint: Chest Pain Stated Complaint: WEAKNESS/CHEST PAIN/BACK PAIN Time Seen by Provider: 09/27/19 10:15 Mode of Arrival: Ambulatory Information source: Patient Notes: This 34 year old male patient presents to the emergency department today with complaints of nasal congestion, a cough, and left sided testicular pain. states that the patient was "too weak to walk this morning". Patient was seen by Nakul [facility] at [facility] for this yesterday and was negative for the flu but still was given Tamiflu although the patient states he never took this. TRAVEL OUTSIDE OF THE [place] IN LAST 30 DAYS: No - Related Data Allergies/Adverse Reactions: No Known Allergies Allergy (Verified 01/12/19 13:30) Past Medical History - General Information source: Patient - Social History Smoking Status: Current Some Day Smoker Cigarette use (# per day): Yes Frequency of alcohol use: None Drug Abuse: None Lives with: Family Family History: Reviewed & Not Pertinent Patient has suicidal ideation: No Patient has homicidal ideation: No Musculoskeletal Medical History: Reports Hx Musculoskeletal Trauma Psychiatric Medical History: Reports: Hx Anxiety, Hx Depression, Hx Post Traumatic Stress Disorder, Hx Schizophrenia Traumatic Medical History: Reports: Hx Fractures - Pelvis Past Surgical History: Reports: Hx Oral Surgery - Immunizations Immunizations up to date: Yes Hx Diphtheria, Pertussis, Tetanus Vaccination: Yes Review of Systems - Review of Systems Constitutional: See HPI, Fever EENT: See HPI, Nose congestion Cardiovascular: No symptoms reported Respiratory: See HPI, Cough Gastrointestinal: No symptoms reported Genitourinary: No symptoms reported Male Genitourinary: See HPI, Testicular pain Musculoskeletal: No symptoms reported Skin: No symptoms reported Hematologic/Lymphatic: No symptoms reported Neurological/Psychological: No symptoms reported -: Yes All other systems reviewed and negative Physical Exam - Vital signs Vitals: Temp Pulse BP Pulse Ox 101.0 F H 77 147/97 H 98 09/27/19 10:14 09/27/19 10:14 09/27/19 10:14 09/27/19 10:14 Interpretation: Normal - General General appearance: Appears well, Alert - HEENT Head: Normocephalic, Atraumatic Eyes: Normal Pupils: PERRL - Respiratory Respiratory status: No respiratory distress Chest status: Nontender Breath sounds: Normal Chest palpation: Normal - Cardiovascular Rhythm: Regular Heart sounds: Normal auscultation Murmur: No - Abdominal Inspection: Normal Distension: No distension Bowel sounds: Normal Tenderness: Nontender Organomegaly: No organomegaly - Genitourinary Inspection: Normal Tenderness: Epididymis tender - left Cremasteric reflex: Normal Scrotum: Normal - Back Back: Normal, Nontender - Extremities General upper extremity: Normal inspection, Nontender, Normal color, Normal ROM, Normal temperature General lower extremity: Normal inspection, Nontender, Normal color, Normal ROM, Normal temperature, Normal weight bearing. No: Mario's sign - Neurological Neuro grossly intact: Yes Cognition: Normal Orientation: AAOx4 Boston Coma Scale Eye Opening: Spontaneous Boston Coma Scale Verbal: Oriented Boston Coma Scale Motor: Obeys Commands Boston Coma Scale Total: 15 Speech: Normal Motor strength normal: LUE, RUE, LLE, RLE Sensory: Normal - Psychological Associated symptoms: Normal affect, Normal mood - Skin Skin Temperature: Warm Skin Moisture: Dry Skin Color: Normal Course - Vital Signs Vital signs: Temp Pulse Resp BP Pulse Ox 99.9 F 77 18 142/95 H 98 09/27/19 13:18 09/27/19 10:14 09/27/19 15:01 09/27/19 15:01 09/27/19 15:01 - Laboratory Result Diagrams: 09/27/19 10:50 09/27/19 10:50 Laboratory results interpreted by me: 09/27/19 09/27/19 10:50 10:50 WBC 3.4 L Plt Count 142 L Monocytes % (Manual) 17 H Carbon Dioxide 33 H Total Protein 8.3 H - Diagnostic Test Radiology reviewed: Reports reviewed Discharge - Discharge Clinical Impression: Fever Qualifiers: Fever type: unspecified Qualified Code(s): R50.9 - Fever, unspecified Condition: Good Disposition: HOME, SELF-CARE Additional Instructions: Return to the Emergency Department without delay if any worse. HOME CARE INSTRUCTIONS & INFORMATION: Thank you for choosing us for your medical needs. We hope you're satisfied with the care you received. After you leave, you must properly care for your problem and, at the same time, observe its progress. Any condition can change. Some illnesses can change rapidly over hours or days. If your condition worsens, return to the Emergency Department or see your physician promptly. ABOUT YOUR X-RAYS AND EKG'S: If you had an EKG or X-rays taken, they have been read by the Emergency Physician. The X-rays and EKG's will also be read by a Radiologist or Acetylene Torch Solderer within 24 hours. If discrepancies are noted, you will be notified by telephone. Please be certain the ED has a correct telephone number & address where you can be reached. Also, realize that some fractures or abnormalities do not show up on initial X-rays. If your symptoms continue, see your physician. ABOUT YOUR LABORATORY TEST: If you had laboratory tests, the results have been reviewed by the Emergency Physician. Some test results (for example cultures) may not be available for several days. You will be contacted if any test result shows you need additional treatment. Please be certain the ED has a correct telephone number and address where you can be reached. ABOUT YOUR MEDICATIONS: You will receive instructions on how to take your medicine on the prescription label you receive. Additional information may be provided by the Pharmacy. If you have questions afterwards, call the ED for clarification or further instructions. Some prescribed medications may cause drowsiness. Do not perform tasks such as driving a car or operating machinery without consulting your Pharmacist. If you feel you need a refill of pain medication, your condition will need re-evaluation. Please do not call for a refill of any medication. ABOUT YOUR SIGNATURE: Signature of this document acknowledges to followin. Understanding that you received emergency treatment and that you may be released before al medical problems are known or treated. Please be certain the ED has a correct phone number & address where you can be reached. 2. Acknowledgement that you will arrange for follow-up care as recommended. 3. Authorization for the Emergency Physician to provide information to your follow-up Physician in order to maximize your care. AT ANY TIME, IF YOUR SYMPTOMS CHANGE SIGNIFICANTLY OR WORSEN OR YOU DEVELOP NEW SYMPTOMS, RETURN TO THE EMERGENCY DEPARTMENT IMMEDIATELY FOR RE-EVALUATION. OUR GOAL IS TO PROVIDE EXCELLENT MEDICAL CARE! WE HOPE THAT WE HAVE MET YOUR EXPECTATIONS DURING YOUR EMERGENCY DEPARTMENT VISIT AND THAT YOU FEEL YOU HAVE RECEIVED EXCELLENT CARE! Fever Fever is the body's reaction to infection. Fever can also occur with illnesses that create fever-producing substances in the body. By itself, fever is not harmful. It helps the body fight invading germs. We are more concerned with: (1) What's causing the fever? (2) How can we keep you more comfortable until the fever goes away? Early in an illness, symptoms are often so vague that a diagnosis can't be made. If the doctor hasn't identified a clear cause for your fever, you will probably develop new symptoms within the next two days. Contact the doctor if you develop severe worsening headache, rash, chest pain, cough with yellow or green sputum, difficulty breathing, abdominal pain, or other new symptoms. There is no reason to treat a fever if you're comfortable. If the fever is causing aches, headache, and fatigue, you can treat it with ibuprofen (Advil, Nuprin, etc) or acetaminophen (Tylenol). Follow the directions on the bottle. Get plenty of liquids (three quarts per day). Rest. Physical work or sports will raise the temperature higher and make you feel much worse. Dress lightly. If you're chilling, this means the temperature is trying to go higher. Take ibuprofen or acetaminophen. When you feel sweaty and "feverish" the temperature is coming down. If the fever doesn't go away within two days or if you become more ill, call the doctor or return at once for re-examination. Referrals: LORRIE BEAN MD [HONORARY] - Follow up as needed I personally performed the services described in the documentation, reviewed and edited the documentation which was dictated to the scribe in my presence, and it accurately records my words and actions.
--- NOTE | 2019-09-27 15:21 | RADIOLOGY REPORT (SQ) ---
EXAM DESCRIPTION: U/S SCROTUM W/DOPPLER COMPLETED DATE/TIME: 09/27/2019 2:52 pm REASON FOR STUDY: left testicle pain COMPARISON: None. TECHNIQUE: Static and realtime dugan scale imaging of the scrotum and testes. Selected color Doppler and spectral images recorded to document blood flow. LIMITATIONS: None. FINDINGS: RIGHT: TESTICLE: The right testicle measures 4.6 x 2.4 x 3.2 cm and on Doppler there is intact arterial infl ow and venous outflow within the ovarian stroma. There is no testicular mass. EPIDIDYMIS: There is an epididymal cyst that measures 0.4 x 0.5 x 0.5 cm. HYDROCELE OR VARICOCELE: Small hydrocele. HERNIA OR EXTRA-TESTICULAR MASS: No. OTHER: No other finding. LEFT: TESTICLE: The left testicle measures 4.7 x 2.5 x 3 cm and on Doppler there is intact arterial inflow and venous outflow within the ovarian stroma. There is no testicular mass. EPIDIDYMIS: Normal. HYDROCELE OR VARICOCELE: Small hydrocele. HERNIA OR EXTRA-TESTICULAR MASS: No. OTHER: No other finding. IMPRESSION: 1. No testicular torsion or mass. 2. No epididymitis or orchitis. 3. Small bilateral hydroceles. TECHNICAL DOCUMENTATION: JOB ID: [id number] [employer]- All Rights Reserved Reading location - IP/workstation name: [email or web address]
[2019-09-27 16:56] VITALS: BP 139/97
--- NOTE | 2019-09-27 21:33 | EKG REPORT ---
SEVERITY:- ABNORMAL ECG - SINUS RHYTHM CONSIDER LEFT VENTRICULAR HYPERTROPHY : Confirmed by: Carmella Plaza MD 27-Sep-2019 21:32:41
== END 2019-09-27 16:55 | disposition home or self-care (01) ==
LOC: ER 10:02
DX: R50.9 Fever, unspecified (principal); R07.9 Chest pain, unspecified; R53.1 Weakness; M54.9 Dorsalgia, unspecified; R09.81 Nasal congestion; R05 Cough; N50.812 Left testicular pain; F17.210 Nicotine dependence, cigarettes, uncomplicated
CPT/HCPCS: 93005; 99284; 96361; 96374; 36415; 83690; 85025; 80053; 81001; 87804; 71046; 76870; 93976; 93010; J2405; J7030